=== PATIENT | male | born 1940 | race Caucasian/White ===

== ENCOUNTER → 2017-09-08 | Day surgery (SDC) | payer BC ==
[~2017-09-08] MED LIST: ATOR20TA PO; CELE200C PO; IV RINGERS,LACTATED 1000ML 1,000 ML IV ONE; LIDOCAINE 2% PF Vial for OR 5 ML VIAL. ONE; MULT1TAB52 PO; PANT40TA5 PO; PROPOFOL 40 ML IV ONE
--- NOTE | 2017-09-08 09:59 | PDOC1 ---
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 Last EGD 2014. Never dysplasia. On PPI. H/o polyps; last colonoscopy 2011 with benign polyp, diverticulosis and IH's. No complaints currently. Past Medical History Cardiovascular: Hyperlipidemia Musculoskeletal: Osteoarthritis, Other (bilateral aseptic necrosis of femoral heads) Past Surgical History Past Surgical History: Appendectomy, Hernia Repair, Total hip replacement ( bilateral), Total knee replacement (right partial), Other (right cochlear implant) Family History Family History: Cancer (multiple, not colon) Social History Smoke: Quit ALCOHOL: occassional Drugs: None Current Medications Current Medications Current Medications Propofol 40 ml @ As Directed STK-MED ONCE IV ; Start 09/08/17 at 09:41; Stop 09/08/17 at 09:42; Status DC Lidocaine HCl (Lidocaine Pf 2% Vial) 5 ml STK-MED ONCE .ROUTE ; Start 09/08/17 at 09:42; Stop 09/08/17 at 09:43; Status DC Ringer's Solution 1,000 ml @ 75 mls/hr 1X ONCE IV Last administered on t 09:45; Start 09/08/17 at 10:00; Stop 09/08/17 at 23:19 Active Scripts Active Reported Multivitamins (Multivitamin) 1 Each Tablet 1 Tab PO DAILY Celebrex (Celecoxib) 200 Mg Capsule 200 Mg PO BID 30 Days Pantoprazole Sodium 40 Mg Tablet.dr 1 Tab PO DAILY Lipitor (Atorvastatin Calcium) 20 Mg Tablet 20 Mg PO HS Allergies Allergies: Coded Allergies: No Known Drug Allergies (Unverified , 09/08/17) ROS Review of System Otherwise negative. Physical Exam General: Alert, Oriented X3, Cooperative, No acute distress Lungs: Clear to auscultation Heart: S1S2, RRR, no gallops, no murmurs Abdomen: Normal bowel sounds, Soft, No tenderness, No hepatosplenomegaly, No masses Rectal Exam: deferred (to procedure) Extremities: No cyanosis, No edema Skin: No significant lesion Neuro: Normal speech, Strength at 5/5 X4 ext, Normal tone, Sensation intact, Cranial nerves 3-12 NL, Reflexes 2+ Psych/Mental Status: Mental status NL, Mood NL Vitals Vitals Vital Signs Date Time Temp Pulse Resp B/P (MAP) Pulse Ox O2 Delivery O2 Flow Rate FiO2 09/08/17 09:38 98.0 67 20 97 98.0 VTE Prophylaxis Ordered VTE Prophylaxis Devices: No VTE Pharmacological Prophylaxi: No Assessment/Plan Assessment/Plan IMP: Recinos's, due. H/o polyps, due. PLAN: EGD/colonoscopy. GERALD DAAMS MD Sep 08, 2017 09:59
--- NOTE | 2017-09-08 10:33 | PDOC4 ---
PROCEDURE Procedure EGD/colonoscopy Indications: SSBE, due/history of polyps, due. Meds: per anesthesia Findings: ARIANNE: BPH, smooth Advanced to cecum. Mucosa normal. Diverticula from distal transverse-->distal sigmoid. 3mm polyp, hepatic flexure/2, 2-3m polyps, cecum/3mm polyp, distal transverse; all biopsied off. IH's noted. E--BE from 32-34. Biopsies 34 and 32-33 cm. G--Small HH D--Normal to second Trent. well. IMP: Polyps Diverticulosis BE HH REC: Resume home meds, diet. f/u in 2 weeks. Repeat egd/colon pending pathology. GERALD ADAMS MD Sep 08, 2017 10:33
[2017-09-08 10:51] VITALS: BP 145/95
--- NOTE | 2017-09-09 13:10 | PATHOLOGY ---
PATHOLOGY REPORT * * * * * * * * FINAL DIAGNOSIS: A. Gastroesophageal junction biopsy 34 cm: - Segments of gastric mucosa showing mild chronic inflammation and focal cystic dilatation of gastric glands. B. Esophageal biopsies 32-33 cm: - Segments of gastric mucosa and columnar-lined mucosa showing chronic inflammation and intestinal metaplasia with goblet cells, consistent with Recinos's change. C. Colon biopsy, hepatic flexure: - Consistent with prominent fold, with mucosal-associated lymphoid aggregate. D. Colon biopsies, cecum: - Tubular adenoma. E. Colon biopsies, mid transverse colon polyp: - Tubular adenoma. (JPM:rebecca; 09/09/2017) COMMENT: Sections of the gastroesophageal junction biopsy at 34 cm reveal segments of gastric mucosa showing mild chronic inflammation and focal cystic dilatation of gastric glands. There is no squamous esophageal mucosa. There is no evidence of Recinos's change, dysplasia, or malignancy. Sections of the esophageal biopsy at 32-33 cm reveal segments of gastric mucosa and segments of columnar-lined mucosa showing mild chronic inflammation and intestinal metaplasia with goblet cells consistent with Recinos's change. There is no squamous esophageal mucosa. There is no evidence of dysplasia or malignancy. Sections of the hepatic flexure biopsy reveal a segment of colonic mucosa containing a mucosal-associated lymphoid aggregate, consistent with prominent fold. There are no adenomatous changes or evidence of malignancy. Sections of the cecal biopsy reveal multiple segments of tubular adenoma. There is no high-grade dysplasia or evidence of malignancy. Sections of the mid transverse colon biopsy reveal a tubular adenoma showing no high-grade dysplasia or evidence of malignancy. (JPM:rebecca; 09/09/2017) REPORT ELECTRONICALLY SIGNED BY: José Miguel Rajan M.D. DATE/TIME: 09/09/2017 13:10 * * * * * * * * GROSS PATHOLOGY: A. Received in formalin labeled "Vickie Holliday, GE junction biopsy 34 cm," are 2 segments of lee soft tissue measuring 1.3 x 0.3 x 0.3 cm in aggregate dimensions and ranging from 0.4 to 0.6 cm in maximum dimension. The specimen is submitted entirely in cassette A1. B. Received in formalin labeled "Vickie Holliday, esophagus biopsies," are 2 segments of lee soft tissue measuring 0.7 x 0.3 x 0.3 cm in aggregate dimensions and ranging from 0.3 to 0.4 cm in maximum dimension. The specimen is submitted entirely in cassette B1. C. Received in formalin labeled "Vickie Trupti, hepatic flexure," is a segment of lee soft tissue measuring 0.4 cm in maximum dimension. The specimen is submitted entirely in cassette C1. D. Received in formalin labeled "Vickie Holliday, cecum biopsies," are 4 segments of lee soft tissue measuring 1.0 x 0.5 x 0.2 cm in aggregate dimensions and ranging from 0.2 to 0.2 cm in maximum dimension. The specimen is submitted entirely in cassette D1. E. Received in formalin labeled "Vickie Holliday, mid transverse colon polyp," are 2 segments of lee soft tissue measuring 0.7 x 0.2 x 0.2 cm in aggregate dimensions and ranging from 0.3 to 0.4 cm in maximum dimension. The specimen is submitted entirely in cassette E1. (TSD; 09/08/2017) INITIAL CPT CODE(S): A; 66556 B; 25041 C; 94198 D; 11654 E; 16312 Professional services performed [place] [facility] [place] [address] Technical services performed by [facility] at [address] [place] [address] [address] [address]. SPECIMEN(S) RECEIVED: A.JE junction biopsy 34cm B.Esophageal biopsy 32-33cm C.Hepatic flexure biopsy D.Cecum biopsies E.Mid transverse colon polyp CLINICAL HISTORY: History of Recinos's, polyps PATIENT: VICKIE HOLLIDAY /AGE: 403/19/1940 (Age: 77) PATIENT #: [id number] ALT CASE #: SPECIMEN COLLECTION DATE: 09/08/2017 SPECIMEN RECEIVED DATE: 09/08/2017 [facility] - [address] [place] [address] - PHONE: [phone] * * * END OF REPORT * * *
== END | disposition home or self-care (01) ==
LOC: SURG 09:04
PROVIDERS: ATTEND Internal Medicine Gastroenterology
DX: Z09 Encounter for follow-up examination after completed treatment for conditions other than malignant neoplasm (principal); K63.5 Polyp of colon; K57.30 Diverticulosis of large intestine without perforation or abscess without bleeding; K22.70 Barrett's esophagus without dysplasia; K44.9 Diaphragmatic hernia without obstruction or gangrene; Z86.010 Personal history of colon polyps; Z96.643 Presence of artificial hip joint, bilateral; Z87.891 Personal history of nicotine dependence; Z98.890 Other specified postprocedural states; M19.90 Unspecified osteoarthritis, unspecified site; E78.5 Hyperlipidemia, unspecified; Z80.9 Family history of malignant neoplasm, unspecified
CPT/HCPCS: 88305; J2704; J2001